=== PATIENT | female | born 1990 | race Caucasian/White ===

== ENCOUNTER 2023-07-01 23:06 | Emergency (ER) | payer MEDICAID ==
[~2023-07-01] VITALS: Ht 167.6 cm; Wt 74.8 kg
[2023-07-02 01:09] VITALS: BP 128/72; TEMP 98.2; O2SAT 98
[2023-07-02] MEDS ORDERED: SULF1TAB48 PO (01:15)
[2023-07-02] MEDS ORDERED: CEPH500T PO (01:15)
== END 2023-07-02 01:20 | disposition home or self-care (01) ==
LOC: ER 23:14
DX: N61.0 Mastitis without abscess (principal)